=== PATIENT | female | born 1955 | race African-American/Black ===

== ENCOUNTER → 2017-02-12 | Outpatient (CLI) | payer BC ==
[~2017-02-12] MED LIST: ALPOPS1510 OPL; CSPOPS OPL; TRVOPS OPL
--- NOTE | 2017-02-12 15:58 | MAMMOGRAPHY REPORT ---
BILATERAL DIGITAL SCREENING MAMMOGRAM WITH CAD: 02/12/2017 CLINICAL HISTORY: Routine screening. Patient has no complaints. TECHNIQUE: Current study was also evaluated with a Computer Aided Detection (CAD) system. Bilateral CC and MLO views were obtained. COMPARISON: Comparison is made to exams dated: 02/05/2016 mammogram, 02/01/2015 mammogram, 12/09/2012 caterina mogram, 12/12/2013 mammogram - [facility], 02/05/2009, and 05/31/2007. BREAST COMPOSITION: There are scattered areas of fibroglandular density in both breasts. FINDINGS: No suspicious masses, calcifications, or areas of architectural distortion are noted in ei ther breast. There has been no significant interval change compared to prior exams. A biopsy marker clip is again noted in the left upper outer quadrant. IMPRESSION: ACR BI-RADS CATEGORY 2: BENIGN There is no mammographic evidence of malignancy. A 1 year screening mammogram is recommended. The pa tient will receive written notification of the results. Approximately 10% of breast cancers are not detected with mammography. A negative mammographic report should not delay biopsy if a clinically suggestive mass is present. Anita Douglas M.D. /:02/12/2017 15:25:35 Instructor Nurse: May WARD(Carlos)(Víctor), [facility] letter sent: Normal 1/2 BI-RADS Code: ACR BI-RADS Category 2: Benign
== END | disposition home or self-care (01) ==
LOC: C.MAMM 14:10
PROVIDERS: ATTEND Family Medicine
DX: Z12.31 Encounter for screening mammogram for malignant neoplasm of breast (principal)

== ENCOUNTER → 2017-02-18 | Outpatient (CLI) | payer BC ==
--- NOTE | 2017-02-18 13:29 | DIAGNOSTIC IMAGING REPORT ---
EXTREMITY NONVASCULAR LIMITED CLINICAL HISTORY: 61 years-old Female presenting with MASS OF SKIN ON RIGHT SHOULDER. TECHNIQUE: Real-time grayscale ultrasound imaging of the right upper extremity was performed for dedicated evaluation of the shoulder. Color Doppler was also performed. COMPARISON: None. FINDINGS: Comparison to the normal appearing left shoulder musculature, there is an intramuscular heterogeneously hyperechoic mass measuring 6.7 x 2.3 x 5.2 cm. This has well-defined margins and is not hyperemic. Associated inflammatory change or fluid collection. IMPRESSION: 1. Intramuscular right shoulder mass. Differential considerations include benign and malignant etiologies, such as lipoma. Further evaluation with contrast-enhanced CT or MR would better evaluate this lesion or possible fat content. Electronically signed by: Donald Mohan M.D. 02/18/2017 1:28 PM Dictated Date/Time: 02/18/2017 1:25 PM
== END | disposition home or self-care (01) ==
LOC: C.ULTRBC 12:57
PROVIDERS: ATTEND Family Medicine
DX: R22.31 Localized swelling, mass and lump, right upper limb (principal)

== ENCOUNTER → 2017-02-25 | Outpatient (CLI) | payer BC ==
--- NOTE | 2017-02-25 09:32 | DIAGNOSTIC IMAGING REPORT ---
RIGHT UPPER EXTREMITY WITH CLINICAL HISTORY: 61 years-old Female presenting with MASS ON SKIN, RT SHOULDER Right. TECHNIQUE: Multidetector CT of the right upper extremity was performed after the administration of intravenous contrast. IV contrast: 95 mL of Optiray 320. A dose lowering technique was used consistent with the principles of ALARA (as low as reasonably achievable). COMPARISON: Correlation made to ultrasound from 02/18/2017. CT DOSE (mGy.cm): The estimated cumulative dose is 368.99 mGy.cm. FINDINGS: Intensive Care Specialist topogram: Unremarkable. At the site of clinical concern, an intramuscular lipoma is noted within the infraspinatus. No soft tissue nodularity or complexity. No other soft tissue abnormality. Normal muscle bulk. Acromioclavicular and glenohumeral joints congruent. No osseous abnormality. Vessels patent. Visualized portion of the right hemithorax normal. IMPRESSION: Intramuscular lipoma in the infraspinatus muscle. Electronically signed by: Donald Mohan M.D. 02/25/2017 9:31 AM Dictated Date/Time: 02/25/2017 9:27 AM
== END | disposition home or self-care (01) ==
LOC: C.CTS 09:04
PROVIDERS: ATTEND Family Medicine
DX: R22.31 Localized swelling, mass and lump, right upper limb (principal)